=== PATIENT | male | born 1960 | race Hispanic/Latino ===

== ENCOUNTER → 2023-05-08 12:06 | Outpatient (CLI) | payer OTHER, SELFPAY | LOC: PHYS 12:12 | PROVIDERS: PCP Registered Nurse; Referring Provider Physical Medicine & Rehabilitation; Visit Provider Physical Medicine & Rehabilitation | DX: M54.16 Radiculopathy, lumbar region (principal) | CPT/HCPCS: 95886; 95910 ==

== ENCOUNTER → 2023-11-17 13:07 | Outpatient (CLI) | payer OTHER, SELFPAY ==
--- NOTE | 2023-11-17 14:30 | DI.MRI.S_ITS ---
PROCEDURE: MR LUMBAR SPINE WO CON INDICATIONS: post lami with LE weakness and pain TECHNIQUE: Noncontrast sagittal T1 spin echo and T2 fast echo, sagittal STIR, and T2 fast spin echo through the lumbar spine. In cases with scoliosis, additional coronal T2 fast spin echo may be performed. COMPARISON: Outside Facility, RG, MRI L-SPINE W/O CONTRAST, 04/25/2022, 9:56. FINDINGS: Image quality: Excellent. Alignment and Curvature: Straightening of the lumbar lordosis with trace anterolisthesis L2-3. Bone Marrow: Marrow is of normal overall signal. No acute vertebral body compression fractures. Minor endplate spurring from L2 through L5. Spinal Cord: Conus medullaris terminates at the L1-2 level. Visualized cord demonstrates normal signal and size. Paraspinous Soft Tissues: No paravertebral masses. T12-L1: Normal disc. Mild facet arthropathy. L1-L2: Normal disc. Mild facet arthropathy. L2-L3: Disc desiccation and mild disc height loss with circumferential disc bulge. There is mild facet arthropathy. Disc material flattens the anterior CSF causing overall mild central canal stenosis. Mild right foraminal narrowing. L3-L4: Mild disc desiccation without significant height loss. Mild to moderate circumferential disc bulge. Prior right hemilaminectomy and moderate to severe facet arthropathy. Disc material narrows the right lateral recess. 1.0 x 0.6 cm ovoid nodule, in combination with disc material is causing moderate to severe right foraminal stenosis, progressed compared to the prior MRI. Moderate left foraminal stenosis. Moderate persistent central canal narrowing. L4-L5: Disc desiccation and moderate to severe disc height loss. Moderate circumferential disc bulge and focal right foraminal disc bulge contacting the exiting right L4 nerve root. This may have been present previously but not well demonstrated. Prior right laminectomy and mild central canal stenosis. There is moderate facet arthropathy. Together these changes cause moderate to severe right, and [id number] left foraminal narrowing. L5-S1: Mild circumferential disc bulge and mild facet arthropathy. Moderate bilateral foraminal stenosis. IMPRESSION: An ovoid nodule, probably arising from the right hypertrophied facet at the L3-4 level is causing progressive moderate to severe right foraminal stenosis. Persistent right lateral recess narrowing and central canal narrowing at L3-4. Similar moderate to severe right and [id number] left foraminal narrowing at L4-5, worsened by right foraminal and lateral disc bulge. Chronic bilateral moderate foraminal stenosis L5-S1. Dictated by: Pamela Almodovar M.D. on 11/17/2023 at 21:57 Approved by: Pamela Almodovar M.D. on 11/17/2023 at 22:14
== END ==
LOC: MRI 13:09
PROVIDERS: PCP Registered Nurse; Referring Provider Physical Medicine & Rehabilitation; Visit Provider Physical Medicine & Rehabilitation
DX: M47.26 Other spondylosis with radiculopathy, lumbar region (principal); M51.16 Intervertebral disc disorders with radiculopathy, lumbar region; M96.1 Postlaminectomy syndrome, not elsewhere classified; M48.061 Spinal stenosis, lumbar region without neurogenic claudication; M48.07 Spinal stenosis, lumbosacral region; M47.27 Other spondylosis with radiculopathy, lumbosacral region; M51.17 Intervertebral disc disorders with radiculopathy, lumbosacral region
CPT/HCPCS: 72148